=== PATIENT | female | born 1970 | race Caucasian/White ===

== ENCOUNTER 2016-09-23 14:17 | Emergency (ER) | payer OTHER ==
[2016-09-23 14:50] VITALS: BP 206/117; PULSE 89; RESP 18; TEMP 98; O2SAT 98
[2016-09-23] MEDS ORDERED: METOPROLOL SUCCINATE XR 25 MG TAB PO ONE (15:40)
--- NOTE | 2016-09-23 15:43 | UCPHY ---
H & P Patient Type: Established Chief Complaint Nursing Narrative: here 2 wks ago for Appy - here last week due to cont. abd pain - sent to GI today and had BP taken which was 175/125. told to go to PCP - but was able to get into PCP so came here. Time Seen by Provider: 09/23/16 15:28 HPI/ROS: CHIEF COMPLAINT: Hypertension HISTORY OF PRESENT ILLNESS: The patient is a 46-year-old female who comes to the Urgent Care for blood pressure medication. She states that over the last 2 months she has had elevated blood pressure every time it is checked. She has been recently treated for appendicitis but has continued abdominal discomfort. She followed up with her tax accounting assistant today and her blood pressure there was 175/125. She is asymptomatic. She does not have any chest pain, headache, lightheadedness etc. Her tax accounting assistant recommended a colonoscopy. They recommended that she follow up with her primary care doctor Glendy to begin blood pressure medication. She went to Dr. Portillo office but they could not see her today. She then decided to come here. REVIEW OF SYSTEMS: Constitutional: denies: chills, fever, recent illness, recent injury EENTM: denies: blurred vision, double vision, nose congestion Respiratory: denies: cough, shortness of breath Cardiac: denies: chest pain, irregular heart rate, lightheadedness, palpitations Gastrointestinal/Abdominal: denies: abdominal pain, diarrhea, nausea, vomiting, blood streaked stools Genitourinary: denies: dysuria, frequency, hematuria, pain Musculoskeletal: denies: joint pain, muscle pain Skin: denies: lesions, rash, jaundice, bruising Neurological: denies: headache, numbness, paresthesia, tingling, dizziness, weakness Hematologic/Lymphatic: denies: blood clots, easy bleeding, easy bruising Immunologic/allergic: denies: HIV/AIDS, transplant EXAM: GENERAL: Well-appearing, well-nourished and in no acute distress. HEAD: Atraumatic, normocephalic. EYES: Pupils equal round and reactive to light, extraocular movements intact, sclera anicteric, conjunctiva are normal. ENT: TMs normal, nares patent, oropharynx clear without exudates. Moist mucous membranes. NECK: Normal range of motion, supple without lymphadenopathy or JVD. LUNGS: Breath sounds clear to auscultation bilaterally and equal. No wheezes rales or rhonchi. HEART: Regular rate and rhythm without murmurs, rubs or gallops. ABDOMEN: Soft, nontender, normoactive bowel sounds. No guarding, no rebound. No masses appreciated. BACK: No CVA tenderness, no spinal tenderness, step-offs or deformities EXTREMITIES: Normal range of motion, no pitting or edema. No clubbing or cyanosis. NEUROLOGICAL: Cranial nerves II through XII grossly intact. Normal speech, normal gait. 5/5 strength, normal movement in all extremities, normal sensation PSYCH: Normal mood, normal affect. SKIN: Warm, dry, normal turgor, no visible rashes or lesions. Source: Patient Exam Limitations: No limitations - Personal History LMP (Females 10-55): Hysterectomy Current Tetanus Diphtheria and Acellular Pertussis (TDAP): Yes Tetanus Vaccine Date: within 10 years - Medical/Surgical History Hx Asthma: No Hx Chronic Respiratory Disease: No Hx Diabetes: No Hx Cardiac Disease: No Hx Renal Disease: No Hx Cirrhosis: No Hx Alcoholism: No Hx HIV/AIDS: No Hx Splenectomy or Spleen Trauma: No Other PMH: RA , hypothyroid, hysterectomy, appendectomy - Family History Significant Family History: No pertinent family hx - Social History Smoking Status: Never smoked Alcohol Use: Sober Drug Use: None Constitutional: Initial Vital Signs Temperature (C) 36.6 C 09/23/16 14:46 Heart Rate 89 09/23/16 14:46 Respiratory Rate 18 09/23/16 14:46 Blood Pressure 206/117 H 09/23/16 14:46 O2 Sat (%) 98 09/23/16 14:46 O2 Delivery Mode Room Air Allergies/Adverse Reactions: methotrexate Allergy (Intermediate, Verified 09/17/16 19:41) Rash Home Medications: Medication Instructions Recorded Allopurinol [Allopurinol 300 MG 09/01/16 (RX)] Cetirizine [ZyrTEC 10 mg (*)] 09/01/16 Estradiol [Estradiol 1 MG (*)] 09/01/16 Levothyroxine [Synthroid 175 mcg 09/01/16 (*)] sulfaSALAzine [Azulfidine 500 MG 09/01/16 (*)] Omeprazole [Prilosec 20 mg] 20 mg PO DAILY #30 capsule. 09/17/16 Metoprolol Succinate 25 mg PO DAILY #30 tab.er.24h 09/23/16 Medical Decision Making ED Course/Re-evaluation: The patient is asymptomatic. She is here for blood pressure management. We discussed the fact that this is typically done by the primary care physician but that I do not mind starting her on a low dose of metoprolol. She will keep a log of her blood pressure and follow up with Dr. Portillo. She is agreeable with this plan. She declines further workup or testing. She has not had any chest pain or shortness of breath. Additional verbal discharge instructions given. Differential Diagnosis: Partial list of the Differential diagnosis considered include but were not limited to; hypertension, anxiety, abdominal pain and although unlikely based on the history and physical exam, I also considered acute coronary disease, stroke, TIA, seizure, infection. I discussed these differential diagnoses and the plan with the patient as well as the usual and expected course. The patient understands that the diagnosis is provisional and that in medicine we are not always correct and that further workup is often warranted. Usual and customary warnings were given. All of the patient's questions were answered. The patient was instructed to return to the emergency department should the symptoms at all worsen or return, otherwise to followup with the physician as we discussed. - Data Points Medications Given: Discontinued Medications Metoprolol Succinate (Toprol Xl) 25 mg PO EDNOW ONE Stop: 09/23/16 15:41 Last Admin: 09/23/16 16:03 Dose: Not Given Departure - Departure Disposition: Home, Routine, Self-Care Clinical Impression: Hypertension Qualifiers: Hypertension type: essential hypertension Qualifier Code: (I10) Essential ( primary) hypertension Condition: Fair Instructions: Hypertension (ED) Additional Instructions: Keep a log of her blood pressures morning and night and follow up with Dr. Portillo to report whether not the metoprolol seems to be working and to adjust from there. Referrals: Daysi Traore MD [Primary Care Provider] - As per Instructions Prescriptions: Metoprolol Succinate 25 mg PO DAILY #30 tab.er.24h - PQRS PQRS Measurement: Not applicable
== END 2016-09-23 16:04 | disposition home or self-care (01) ==
LOC: CED 14:17
DX: I10 Essential (primary) hypertension (principal); Z76.0 Encounter for issue of repeat prescription
CPT/HCPCS: 99214-PO; G0463-PO

== ENCOUNTER 2016-11-09 10:29 | Day surgery (SDC) | payer OTHER ==
[2016-11-09] MEDS ORDERED: PROPOFOL/EMULSION 500 MG/50 ML BOTTLE IV ONE (11:08)
[2016-11-09] MEDS ORDERED: LR 1,000 ML IV ONE (11:11)
[2016-11-09] MEDS ORDERED: PROPOFOL 200 MG/20 ML VIAL ONE (12:18)
--- NOTE | 2016-11-09 12:25 | GPN ---
[f rep st] PROCEDURE NOTE DATE OF PROCEDURE: 11/09/2016 PROCEDURE: Esophagogastroduodenoscopy with biopsy. INDICATION: The patient is a 46-year-old female who presents with complaints of left upper quadrant abdominal pain. She presents for further evaluation. CONSENT: Risks, benefits, and alternatives of the procedure were discussed in great detail with the patient. Risks of infection, bleeding, perforation, sedation were discussed. All questions were a nswered. Informed consent was obtained. MEDICATIONS: Propofol. Please see Anesthesiology record for details. ESTIMATED BLOOD LOSS: Insignificant. ESOPHAGOGASTRODUODENOSCOPY EXAMINATION: The Olympus upper endoscope was introduced via the mouth an d advanced to the esophagus. The proximal and distal esophagus were normal in appearance. The stom ach was entered and closely examined, including retroflexed views of the angularis, cardia and fundu s. The mucosa in the antrum and the body of the stomach was erythematous in a patchy distribution a nd biopsies were taken. On retroflexed view, the patient was noted to have a moderate-sized hiatal hernia. The duodenal bulb, first and second portions of the duodenum were normal in appearance. Biopsies we re taken to rule out celiac sprue. IMPRESSION: 1. Gastritis status post biopsy. 2. Hiatal hernia. 3. Biopsies taken to rule out celiac sprue. RECOMMENDATIONS: 1. No obvious cause of her symptoms seen. 2. Would continue antispasmodic therapy. 3. Await biopsy results. 4. Office followup with Dr. Nguyen if symptoms continue. /[id number]/MODL
--- NOTE | 2016-11-09 13:15 | GPN ---
[f rep st] PROCEDURE NOTE DATE OF PROCEDURE: 11/09/2016 PROCEDURE: Colonoscopy with biopsy, snare polypectomy. INDICATION: The patient is a 46-year-old female with a family history of polyps who presents for ev aluation of constipation. CONSENT: Risks, benefits, and alternatives of the procedure were discussed in great detail with the patient. Risk of infection, bleeding, perforation and sedation were discussed. All questions answ ered. Informed consent was obtained. MEDICATIONS: Propofol. Please see Anesthesiology record for details. ESTIMATED BLOOD LOSS: Insignificant. COLONOSCOPIC EVALUATION: Rectal exam was done. No palpable masses felt. Scope was introduced via rectum and advanced to the cecum. The ileocecal valve and appendiceal orifice were seen. The quality of the prep was good. The terminal ilium was intubated and was normal in appearance. The colonic mucosa was carefully examined on both insertion and withdrawal of the scope. In the ascending colon, a 2 mm polyp was seen and removed by biopsy forceps. In the hepatic flexure, a 4 mm polyp was seen and removed by snare polypectomy. IMPRESSION: 1. Normal terminal ileum. 2. Ascending colon polyp, status post excisional biopsy. 3. Hepatic flexure polyp, status post removal by snare polypectomy. RECOMMENDATION: 1. Follow up on biopsy results. 2. Bowel regimen. 3. Repeat colonoscopy in 5 years. /[id number]/MODL
== END 2016-11-09 15:25 | disposition home or self-care (01) ==
LOC: FSGY 10:29
PROVIDERS: ATTEND Internal Medicine Gastroenterology
PROC: 0DB98ZX Excision of Duodenum, Via Natural or Artificial Opening Endoscopic, Diagnostic (ICD-10-PCS; principal; 2016-11-09 11:45)
PROC: 0DBL8ZX Excision of Transverse Colon, Via Natural or Artificial Opening Endoscopic, Diagnostic (ICD-10-PCS; principal; 2016-11-09 11:45)
PROC: 0DBK8ZX Excision of Ascending Colon, Via Natural or Artificial Opening Endoscopic, Diagnostic (ICD-10-PCS; principal; 2016-11-09 11:45)
PROC: 0DB68ZX Excision of Stomach, Via Natural or Artificial Opening Endoscopic, Diagnostic (ICD-10-PCS; principal; 2016-11-09 11:45)
DX: R10.12 Left upper quadrant pain (principal); R10.13 Epigastric pain; K59.00 Constipation, unspecified; D13.1 Benign neoplasm of stomach; D12.3 Benign neoplasm of transverse colon; K29.70 Gastritis, unspecified, without bleeding; K44.9 Diaphragmatic hernia without obstruction or gangrene; G47.33 Obstructive sleep apnea (adult) (pediatric); I10 Essential (primary) hypertension; M06.9 Rheumatoid arthritis, unspecified; E03.9 Hypothyroidism, unspecified
CPT/HCPCS: J2704

== ENCOUNTER → 2016-12-22 | Outpatient (CLI) | payer OTHER | LOC: CIMAGING 14:15 | PROVIDERS: ATTEND Internal Medicine | DX: R91.8 Other nonspecific abnormal finding of lung field (principal) | CPT/HCPCS: 71250-PO ==